=== PATIENT | male | born 2000 | race Caucasian/White ===

== ENCOUNTER → 2020-05-07 15:45 | Outpatient (CLI) | payer MEDICAID, SELFPAY ==
[2020-05-09 09:44] LABS: Covid-19 Nasal PCR Sendout UK Not Detected
== END ==
PROVIDERS: PCP Nurse Practitioner Family; Visit Provider Nurse Practitioner Family
DX: Z03.818 Encounter for observation for suspected exposure to other biological agents ruled out (principal)
CPT/HCPCS: U0003